=== PATIENT | male | born 2005 | race Caucasian/White ===

== ENCOUNTER 2025-10-19 17:09 | Emergency (ER) | payer BC ==
[~2025-10-19] VITALS: Ht 172.7 cm; Wt 61.2 kg
[2025-10-19 17:40] VITALS: TEMP 98
[2025-10-19 19:04] VITALS: BP 101/62; O2SAT 98
[2025-10-19] MEDS ORDERED: FAMOTIDINE/PF INJ 20 MG/2 ML VIAL IV ONE (19:09)
[2025-10-19 19:26] LABS: PLATELET COUNT (AUTO) 181 K/uL (150-450); RED BLOOD CELL COUNT(AUTO) 4.89 MIL/uL (4.5-6.0); RED CELL DISTRIBUTION WIDTH 13.0 % (11.5-15.0); WHITE BLOOD COUNT (AUTO) 9.4 K/uL (4.3-11.0)
[2025-10-19] MEDS: IV NS 0.9% 1,000 ML BAG IV ONE (19:27)
[2025-10-19] MEDS: FAMOTIDINE/PF INJ 20 MG/2 ML VIAL IV ONE (19:27)
[2025-10-19 19:38] LABS: ASPARTATE AMINOTRANSFERASE 18.0 U/L (15-37); TOTAL PROTEIN, SERUM 7.5 g/dL (6.4-8.2)
[2025-10-19 19:39] LABS: ASPARTATE AMINOTRANSFERASE 17.0 U/L (15-37); CALCIUM, SERUM 9.3 mg/dL (8.5-10.1); CREATININE 0.9 mg/dL (0.6-1.3); SODIUM SERUM 140.0 mmol/L (136-145); TOTAL PROTEIN, SERUM 7.5 g/dL (6.4-8.2); UREA NITROGEN, BLOOD 11.0 mg/dL (7-18)
[2025-10-19 19:51] LABS: APPEARANCE,URINE CLEAR (CLEAR); BLOOD, URINE NEGATIVE Ery/uL (NEGATIVE); LEUKOCYTE ESTERASE ,URINE NEGATIVE (NEGATIVE); NITRITE, URINE NEGATIVE (NEGATIVE); UGLUCOSE NEGATIVE (NEGATIVE)
[2025-10-19 20:02] LABS: ADD URINE CULTURE NO; SQUAMOUS EPITHELIAL CELL,UR Few /HPF (None Seen)
[2025-10-19] MEDS ORDERED: OMEP20CA15 PO (20:21)
[2025-10-19] MEDS ORDERED: ONDA4TAB5 PO (20:21)
== END 2025-10-19 20:31 | disposition home or self-care (01) ==
LOC: ER 17:27
DX: K29.70 Gastritis, unspecified, without bleeding (principal); Z79.899 Other long term (current) drug therapy
CPT/HCPCS: 99283; 96374; 96361; 85025; 83690; 81001; 36415; 80053; J1308; J7030; 80076-TC